=== PATIENT | female | born 1995 | race American Indian/Alaskan Native ===

== ENCOUNTER 2018-08-15 13:02 | Emergency (ER) | payer OTHER ==
[~2018-08-15] VITALS: Ht 170.2 cm; Wt 93.0 kg
[2018-08-15] MEDS ORDERED: CLEOCIN HCL300 MG PO (14:13)
[2018-08-15] MEDS ORDERED: IBUPROFEN600 MG PO (14:13)
[2018-08-15] MEDS ORDERED: NORCO 5-325 TA1 EACH PO (14:13)
== END 2018-08-15 14:27 | disposition home or self-care (01) ==
LOC: ED 13:02
PROC: 0H96XZZ Drainage of Back Skin, External Approach (ICD-10-PCS; principal; 2018-08-15)
DX: L02.212 Cutaneous abscess of back [any part, except buttock and flank] (principal)
CPT/HCPCS: 10060; 87070; 87077; 87186; 99283-25

== ENCOUNTER 2019-10-23 16:43 | Emergency (ER) | payer BC, OTHER ==
[~2019-10-23] VITALS: Ht 170.2 cm; Wt 103.2 kg
[~2019-10-23 16:43] MED LIST: CLEOCIN HCL300 MG PO; IBUPROFEN600 MG PO; NORCO 5-325 TA1 EACH PO
== END 2019-10-23 19:13 | disposition home or self-care (01) ==
LOC: ED 16:43
DX: L05.01 Pilonidal cyst with abscess (principal)
CPT/HCPCS: 76857; 84703; 85025; 96374; 99283-25; J1170; J7030